=== PATIENT | female | born 1985 | race African-American/Black ===

== ENCOUNTER 2016-11-29 11:38 | Emergency (ER) | payer SELFPAY ==
[~2016-11-29] VITALS: Ht 165.1 cm; Wt 113.0 kg
[2016-11-29] MEDS ORDERED: KETOROLAC 60MG/2ML VIAL IM ONE (12:15)
[2016-11-29 13:54] VITALS: BP 150/86
== END 2016-11-29 14:34 | disposition home or self-care (01) ==
LOC: ER 14:11
DX: J06.9 Acute upper respiratory infection, unspecified (principal); F17.210 Nicotine dependence, cigarettes, uncomplicated
CPT/HCPCS: 87070; 87430; 96372; 99284; J1885; 99283

== ENCOUNTER 2019-06-08 13:40 | Observation (INO) | payer MEDICAID ==
[~2019-06-08] VITALS: Ht 165.1 cm; Wt 117.9 kg
[2019-06-08] MEDS ORDERED: LACTATED RINGERS 1,000 ML IV SCH (14:45)
[2019-06-08] MEDS ORDERED: PNV1TABL76 MT (16:27)
[2019-06-08 19:42] LABS: *AMPHETAMINES SCREEN URINE NEGATIVE (NEGATIVE); *BARBITURATES SCREEN URINE NEGATIVE (NEGATIVE)
[2019-06-08 19:43] LABS: *BENZODIAZEPINES SCREEN URINE NEGATIVE (NEGATIVE); METHADONE URINE SCREEN NEGATIVE (NEGATIVE); OPIATES URINE SCREEN NEGATIVE (NEGATIVE); PHENCYCLIDINE URINE SCREEN NEGATIVE (NEGATIVE)
[2019-06-08 19:51] LABS: *COCAINE SCREEN URINE PRESUMTIVE POSITIVE (NEGATIVE)
[2019-06-08 19:52] LABS: CANNABINOID URINE SCREEN PRESUMTIVE POSITIVE (NEGATIVE)
== END 2019-06-08 17:00 | disposition home or self-care (01) ==
LOC: 8 EST LDRP 13:40
PROVIDERS: ADMIT Obstetrics & Gynecology; ATTEND Obstetrics & Gynecology
DX: O99.322 Drug use complicating pregnancy, second trimester (principal); F14.10 Cocaine abuse, uncomplicated; Z3A.27 27 weeks gestation of pregnancy
CPT/HCPCS: 76805; 80305; 80349; 80353; 96360; 96361; 99281; G0378

== ENCOUNTER 2020-03-29 16:14 | Emergency (ER) | payer MEDICAID ==
[~2020-03-29] VITALS: Ht 165.1 cm; Wt 127.0 kg
[~2020-03-29 16:14] MED LIST: PNV1TABL76 MT
[2020-03-29 16:16] VITALS: BP 143/97
[2020-03-29] MEDS ORDERED: KETOROLAC 30MG/ML VIAL IM ONE (16:30)
[2020-03-29] MEDS ORDERED: CYCLOBENZAPRINE 10MG TABLET PO ONE (16:30)
== END 2020-03-29 17:53 | disposition home or self-care (01) ==
LOC: ER 16:14
DX: S16.1XXA Strain of muscle, fascia and tendon at neck level, initial encounter (principal); S46.812A Strain of other muscles, fascia and tendons at shoulder and upper arm level, left arm, initial encounter; V49.49XA Driver injured in collision with other motor vehicles in traffic accident, initial encounter; Y93.89 Activity, other specified; Y92.89 Other specified places as the place of occurrence of the external cause; Y99.8 Other external cause status; Z98.890 Other specified postprocedural states
CPT/HCPCS: 71045; 72125; 73030; 81025; 96372; 99284; J1885

== ENCOUNTER 2020-04-12 14:26 | Emergency (ER) | payer MEDICAID ==
[~2020-04-12] VITALS: Ht 165.1 cm; Wt 104.0 kg
[2020-04-12 14:30] VITALS: BP 132/88
[2020-04-12] MEDS ORDERED: ACETAMINOPHEN 325MG TABLET PO ONE (14:45)
[2020-04-12] MEDS ORDERED: IBUPROFEN 600MG TABLET PO ONE (16:15)
== END 2020-04-12 16:25 | disposition home or self-care (01) ==
LOC: ER 14:26
DX: S93.491A Sprain of other ligament of right ankle, initial encounter (principal); W18.39XA Other fall on same level, initial encounter; Y93.89 Activity, other specified; Y92.89 Other specified places as the place of occurrence of the external cause; Y99.8 Other external cause status
CPT/HCPCS: 73610; 73630; 99284

== ENCOUNTER 2021-08-18 02:39 | Emergency (ER) | payer MEDICAID ==
[~2021-08-18] VITALS: Ht 165.1 cm; Wt 118.0 kg
[2021-08-18] MEDS ORDERED: HYDROCODONE/ACETAMINOPHEN 5/325MG TABLET PO STA (02:59)
[2021-08-18] MEDS ORDERED: BACITRACIN ZINC OINT UDPKT TOP ONE (03:00)
[2021-08-18] MEDS ORDERED: TETANUS, DIPHTHERIA, PERTUSSIS VAC/PF 0.5ML (>10YR OLD) IM ONE (03:00)
[2021-08-18] MEDS ORDERED: IBUP-2029 MT (04:55)
[2021-08-18 05:00] VITALS: BP 129/76
== END 2021-08-18 05:18 | disposition home or self-care (01) ==
LOC: ER 02:39
DX: S01.81XA Laceration without foreign body of other part of head, initial encounter (principal); S09.8XXA Other specified injuries of head, initial encounter; Z98.890 Other specified postprocedural states; Z97.5 Presence of (intrauterine) contraceptive device; Y04.0XXA Assault by unarmed brawl or fight, initial encounter; Y93.89 Activity, other specified; Y92.89 Other specified places as the place of occurrence of the external cause
CPT/HCPCS: 70486; 73600; 90471; 90715; 99284

== ENCOUNTER 2021-08-29 12:23 | Emergency (ER) | payer MEDICAID ==
[~2021-08-29] VITALS: Ht 165.1 cm; Wt 113.0 kg
[~2021-08-29 12:23] MED LIST changes: +IBUP-2029 MT
[2021-08-29 12:30] VITALS: BP 161/92
[2021-08-29] MEDS ORDERED: TETRACAINE 0.5% OPHTH DROPS 4ML LEFTEYE ONE (14:30)
[2021-08-29] MEDS ORDERED: FLUORESCEIN SODIUM 1MG/STRIP LEFTEYE ONE (14:30)
== END 2021-08-29 15:30 | disposition home or self-care (01) ==
LOC: ER 12:34
DX: H57.89 Other specified disorders of eye and adnexa (principal); Z98.890 Other specified postprocedural states
CPT/HCPCS: 81025; 99282

== ENCOUNTER 2021-11-02 11:40 | Emergency (ER) | payer MEDICAID ==
[~2021-11-02] VITALS: Ht 165.1 cm; Wt 99.0 kg
[2021-11-02] MEDS ORDERED: HYDROCODONE/ACETAMINOPHEN 5/325MG TABLET PO ONE (12:00)
[2021-11-02] MEDS ORDERED: ONDANSETRON 4MG ODT PO ONE (12:00)
[2021-11-02] MEDS ORDERED: AMOX-494 MT (13:42)
[2021-11-02] MEDS ORDERED: IBUP-2028 MT (13:42)
[2021-11-02] MEDS ORDERED: ONDA4TAB11 PO (13:42)
[2021-11-02] MEDS ORDERED: HYDR-4001 MT (13:42)
[2021-11-02 14:15] VITALS: BP 139/84
== END 2021-11-02 14:17 | disposition home or self-care (01) ==
LOC: ER 11:40
DX: K04.7 Periapical abscess without sinus (principal); F17.200 Nicotine dependence, unspecified, uncomplicated; I10 Essential (primary) hypertension; Z98.890 Other specified postprocedural states
CPT/HCPCS: 99283; Q0162

== ENCOUNTER 2021-12-01 11:36 | Emergency (ER) | payer MEDICAID ==
[~2021-12-01] VITALS: Ht 165.1 cm; Wt 120.0 kg
[~2021-12-01 11:36] MED LIST changes: +AMOX-494 MT; +HYDR-4001 MT; +IBUP-2028 MT; +ONDA4TAB11 PO
[2021-12-01] MEDS ORDERED: MORPHINE SULFATE 4 MG/ML CPJ (NOT FOR IM USE) IV STA (14:31)
[2021-12-01] MEDS ORDERED: ONDANSETRON HCL 4MG/2ML INJ IV STA (14:31)
[2021-12-01] MEDS ORDERED: SODIUM CHLORIDE 0.9% 1,000 ML IV ONE (14:45)
[2021-12-01 15:24] LABS: BASOPHILS % 0.6 % (0.0-2.0); EOSINOPHILS % 0.4 % (0.0-5.0); HEMATOCRIT. 38.5 % (36.0-48.0); HEMOGLOBIN. 12.3 g/dL (12.0-16.0); LYMPHOCYTES % 23.5 % (20.0-50.0); MEAN CORPUSCULAR HEMOGLOBIN 29.2 pg (28.0-32.0); MEAN PLATELET VOLUME 8.8 fl (7.4-10.4); MONOCYTES % 7.6 % (2.0-8.0); NEUTROPHILS % 67.9 % (40.0-76.0); PLATELET 252 x1000/uL (130-400); RED BLOOD CELL COUNT 4.23 mill/uL (4.2-5.4)
[2021-12-01 15:31] LABS: CHLORIDE 102 mEq/L (98-107)
[2021-12-01 15:39] LABS: HCG SCREEN NEGATIVE
[2021-12-01] MEDS ORDERED: BO1 TP (18:04)
[2021-12-01] MEDS ORDERED: HYDR-4001 MT (18:04)
[2021-12-01] MEDS ORDERED: IBUP-2028 MT (18:04)
[2021-12-01] MEDS ORDERED: BACITRACIN ZINC OINT UDPKT TOP ONE (18:15)
[2021-12-01] MEDS ORDERED: IOHEXOL-300 100 ML BOTTLE ONE (18:17)
[2021-12-01] MEDS ORDERED: HYDROCODONE/ACETAMINOPHEN 5/325MG TABLET PO ONE (19:00)
[2021-12-01 19:03] VITALS: BP 119/77
== END 2021-12-01 19:12 | disposition home or self-care (01) ==
LOC: ER 12:47
DX: S70.311A Abrasion, right thigh, initial encounter (principal); S50.811A Abrasion of right forearm, initial encounter; S60.812A Abrasion of left wrist, initial encounter; S60.811A Abrasion of right wrist, initial encounter; R55 Syncope and collapse; S60.512A Abrasion of left hand, initial encounter; S60.511A Abrasion of right hand, initial encounter; S40.811A Abrasion of right upper arm, initial encounter; S40.812A Abrasion of left upper arm, initial encounter; M25.552 Pain in left hip; M25.551 Pain in right hip; G89.11 Acute pain due to trauma; I10 Essential (primary) hypertension; V48.4XXA Person boarding or alighting a car injured in noncollision transport accident, initial encounter; Y93.39 Activity, other involving climbing, rappelling and jumping off; Y92.488 Other paved roadways as the place of occurrence of the external cause
CPT/HCPCS: 36415; 70450; 71045; 73090; 73110; 73130; 73522; 73552; 74177; 80053; 83690; 84703; 85025; 96361; 96374; 96375; 99285; J2270; J2405; J7030; Q9967

== ENCOUNTER 2021-12-04 15:41 | Emergency (ER) | payer MEDICAID ==
[~2021-12-04] VITALS: Ht 165.1 cm; Wt 121.0 kg
[~2021-12-04 15:41] MED LIST changes: +BO1 TP
[2021-12-04] MEDS ORDERED: ACET-2708 MT (18:36)
[2021-12-04] MEDS ORDERED: MUPI1OIN4 TP (18:36)
[2021-12-04 18:47] VITALS: BP 115/75
== END 2021-12-04 18:47 | disposition home or self-care (01) ==
LOC: ER 15:41
DX: S80.212A Abrasion, left knee, initial encounter (principal); S80.211A Abrasion, right knee, initial encounter; S40.811A Abrasion of right upper arm, initial encounter; S00.81XA Abrasion of other part of head, initial encounter; I10 Essential (primary) hypertension; Z98.890 Other specified postprocedural states; V87.8XXA Person injured in other specified noncollision transport accidents involving motor vehicle (traffic), initial encounter; Y93.89 Activity, other specified; Y92.488 Other paved roadways as the place of occurrence of the external cause
CPT/HCPCS: 99282

== ENCOUNTER 2023-09-13 00:36 | Emergency (ER) | payer MEDICAID, OTHER ==
[~2023-09-13] VITALS: Ht 165.1 cm; Wt 109.0 kg
[~2023-09-13 00:36] MED LIST changes: +ACET-2708 MT; +MUPI1OIN4 TP
[2023-09-13 00:38] VITALS: O2SAT 98
[2023-09-13 01:19] LABS: BASOPHILS % 0.7 % (0.0-2.0); EOSINOPHILS % 1.7 % (0.0-5.0); HEMATOCRIT. 37.9 % (36.0-48.0); HEMOGLOBIN. 12.3 g/dL (12.0-16.0); LYMPHOCYTES % 35.3 % (20.0-50.0); MEAN CORPUSCULAR HEMOGLOBIN 29.8 pg (28.0-32.0); MEAN CORPUSCULAR HGB CONC 32.4 g/dL (31.0-37.0); MEAN PLATELET VOLUME 8.4 fl (7.4-10.4); MONOCYTES % 4.6 % (2.0-8.0); NEUTROPHILS % 57.7 % (40.0-76.0); PLATELET 304 x1000/uL (130-400); RED BLOOD CELL COUNT 4.13 mill/uL (4.2-5.4); RED CELL DISTRIBUTION WIDTH 13.5 % (11.6-14.6); WHITE BLOOD COUNT 6.8 x1000/uL (4.5-11.0)
[2023-09-13 01:41] LABS: HCG SCREEN NEGATIVE
[2023-09-13] MEDS: ACETAMINOPHEN 325MG TABLET PO ONE (01:57)
[2023-09-13] MEDS: METOCLOPRAMIDE HCL 10MG TABLET PO ONE (01:57)
[2023-09-13 02:41] LABS: ALANINE AMINOTRANSFERASE 14 IU/L (10-49); ALBUMIN 4.3 g/dL (3.2-4.8); ASPARTATE AMINOTRANSFERASE 23 IU/L (<34); BILIRUBIN TOTAL 0.3 mg/dL (0.1-1.0); CALCIUM 8.5 mg/dL (8.7-10.4); CARBON DIOXIDE 24 mEq/L (21-32); CHLORIDE 105 mEq/L (98-107); CREATININE 0.7 mg/dL (0.6-1.0); GLUCOSE 98 mg/dL (70-105); POTASSIUM 3.8 mEq/L (3.5-5.1); PROTEIN TOTAL 7.5 g/dL (6.0-8.3); SODIUM 138 mEq/L (136-145); UREA NITROGEN BLOOD 9 mg/dL (9-23)
[2023-09-13] MEDS ORDERED: ACET-2708 MT (03:02)
[2023-09-13] MEDS ORDERED: METO-293 MT (03:02)
[2023-09-13 03:08] VITALS: BP 129/70; PULSE 89; RESP 16; TEMP 98.1
== END 2023-09-13 04:03 | disposition home or self-care (01) ==
LOC: ER 00:36
DX: G43.909 Migraine, unspecified, not intractable, without status migrainosus (principal); I10 Essential (primary) hypertension; F17.200 Nicotine dependence, unspecified, uncomplicated; F12.10 Cannabis abuse, uncomplicated; Z00.00 Encounter for general adult medical examination without abnormal findings; Z79.899 Other long term (current) drug therapy
CPT/HCPCS: 99283; 80053; 84703; 85025; 36415; J8597